=== PATIENT | female | born 1960 | race Caucasian/White ===

== ENCOUNTER 2022-04-03 08:00 | Outpatient (CLI) | payer MEDICARE ==
[2022-04-03 17:58] LABS: BILIRUBIN,URINE NEGATIVE (NEGATIVE); GLUCOSE, URINE (UA) NEGATIVE (NEGATIVE); KETONES,URINE (UA) NEGATIVE (NEGATIVE); LEUKOCYTE ESTERASE, URINE LARGE (NEGATIVE); NITRITE,URINE POSITIVE (NEGATIVE); OCCULT BLOOD,URINE NEGATIVE (NEGATIVE); PROTEIN,URINE NEGATIVE (NEGATIVE); UROBILINOGEN,URINE 1 (NORMAL) E.U./dL (NORMAL)
[2022-04-03 18:08] LABS: BACTERIA,URINE Moderate /HPF (None Seen); CLARITY,URINE CLEAR (CLEAR); RBC,URINE 0-5 /HPF (0-5); SQUAMOUS EPITHELIAL CELL,UR RARE Squamous (<= Few)
== END 2022-04-03 23:59 | disposition home or self-care (01) ==
LOC: LAB.N 08:00
PROVIDERS: ATTEND Physician Assistant Medical
DX: R30.0 Dysuria (principal)
CPT/HCPCS: 81001; 87086; 87181

== ENCOUNTER 2023-03-06 19:52 | Emergency (ER) | payer MEDICARE ==
[2023-03-06] MEDS ORDERED: VANCOMYCIN INJ 2.25 GM in SODIUM CHLORIDE 0.9% 500 ML IV STA (20:20)
[2023-03-06] MEDS ORDERED: cefTRIAXone 2 GM in SODIUM CHLORIDE 0.9% MINIBAG 100 ML IV STA (20:20)
[2023-03-06] MEDS ORDERED: ACYCLOVIR INJ 1,000 MG in SODIUM CHLORIDE 0.9% 250 ML IV STA (20:22)
[2023-03-06] MEDS ORDERED: AMPICILLIN 2 GM in SODIUM CHLORIDE 0.9% MINIBAG 100 ML IV STA (20:22)
--- NOTE | 2023-03-06 20:25 | ED Physician Documentation ---
PD HPI HEADACHE - Stated complaint Stated Complaint: MEDICATION REACTION - Chief complaint Chief Complaint: Neuro - History obtained from History obtained from: Patient, Family - Additional information Additional information: .62-year-old woman with history of hypertension had a trigger finger surgery 5 days ago, on Thursday. Starting that night she developed headache the headache is been progressive ever since with a fever up to 100.0 starting last night. Today she has had progressive confusion. The history is from the as she is very confused. PD PAST MEDICAL HISTORY - Allergies Allergies/Adverse Reactions: Allergies Allergy/AdvReac Type Severity Reaction Status Date / Time benazepril [From Lotensin] AdvReac Unknown Verified 03/06/23 20:11 PD ED PE NORMAL - Vitals Vital signs reviewed: Yes (Febrile, tachycardic, hypertensive) - General General: Other (She is oriented to person only. She follows simple commands. She states her age is 52. Has no idea of the date or situation.) - HEENT HEENT: PERRL, EOMI - Neck Neck: Other (Little bit hard to tell because of her encephalopathy but does seem to have some meningismus) - Cardiac Cardiac: Other (Mild resting tachycardia without murmur) - Respiratory Respiratory: No respiratory distress, Clear bilaterally - Abdomen Abdomen: Normal bowel sounds, Soft, Non tender - Derm Derm: Normal color, Warm and dry - Extremities Extremities: Other (2 small surgical incisions on the right palm that look fine without signs of infection.) - Neuro Neuro: No motor deficit, No sensory deficit Eye Opening: Spontaneous Motor: Obeys Commands Verbal: Confused GCS Score: 14 Results - Vitals Vitals: Vital Signs - 24 hr 03/06/23 03/06/23 03/06/23 20:05 20:30 21:00 Temperature 38.1 C H Heart Rate 108 H 110 H 93 Respiratory 16 31 H 31 H Rate Blood Pressure 178/83 H 194/97 H 184/90 H O2 Saturation 93 95 93 03/06/23 03/06/23 21:30 22:00 Temperature Heart Rate 100 95 Respiratory 31 H 32 H Rate Blood Pressure 182/80 H O2 Saturation 99 94 Oxygen O2 Source Room air - EKG (time done) 2043 EKG releavant findings:: EKG personally interpreted by author of this note. Relevant findings are: Rate: Rate (enter#) (90) Rhythm: NSR, LAE [place]: LAD Intervals: Normal AR QRS: Normal Ischemia: Non specific changes. No: ST elevation c/w ischemia, ST depression - Labs Labs: Laboratory Tests 03/06/23 03/06/23 03/06/23 20:24 20:24 21:02 WBC 18.5 H RBC 5.06 Hgb 14.3 Hct 42.6 MCV 84.2 MCH 28.3 MCHC 33.6 RDW 13.3 Plt Count MPV X RAY CONSULTANT Neut # (Auto) Not Reportable Lymph # (Auto) Not Reportable [place] # (Auto) Not Reportable Eos # (Auto) Not Reportable Baso # (Auto) Not Reportable Absolute Nucleated RBC Not Reportable Total Counted 100 Band Neuts % (Manual) 2 Abnorm Lymph % (Manual) 0 Nucleated RBC % Not Reportable Neutrophils # (Manual) 17.0 H Lymphocytes # (Manual) 0.2 L Monocytes # (Manual) 1.3 H Eosinophils # (Manual) 0.0 Basophils # (Manual) 0.0 Differential Comment MANUAL DIFFERENTIAL Platelet Estimate DECREASED (<130,000) Platelet Morphology PLATELET CLUMPING RBC Morph Micro Appear NORMAL APPEARANCE Sodium 136 Potassium 3.3 L Chloride 97 L Carbon Dioxide 28 Anion Gap 11.0 BUN 22 H Creatinine 0.7 Estimated GFR (MDRD) 85 L Glucose 178 H Lactic Acid 1.3 Calcium 9.5 Total Bilirubin 1.5 H AST 18 ALT 21 Alkaline Phosphatase 82 Total Protein 8.3 H Albumin 4.5 Globulin 3.8 Albumin/Globulin Ratio 1.2 Ethyl Alcohol < 5.0 - Rads (name of study) CT of the head demonstrates a mass in the right frontal lobe, could be metastatic disease versus brain abscess and there is associated hydrocephalus Relevant Findings:: Final report received, Discussed with rads, EMP independent interpretation of test Single view chest x-ray demonstrates cardiomegaly with left basilar opacity Relevant Findings:: Final report received, EMP independent interpretation of test PD Medical Decision Making - ED course ED course: 62-year-old woman presents with 4 days of progressive headache and today dev eloping encephalopathy. She is noted to be febrile and tachycardic. Initial concern was for meningitis. Initial orders included blood cultures, labs, IV Rocephin, vancomycin, ampicillin, and acyclovir. Subsequently she went over to CT where on my "wet read" she has a right frontal mass with hydrocephalus. This was discussed with the . She will need to go to a tertiary facility with capabilities for neurosurgery, neurology intervention, potentially infectious disease. I do not feel comfortable at this time doing a lumbar puncture as it may cause herniation. But she is being fully treated for meningitis. Upon review of her CTA also ordered dexamethasone. Spoke with Dr Araujo, hospitalist at [facility] at [phone], we need to talk with NSGY prior to [facility], but she accepts. Subsequently I spoke with Dr. Mayer who recommends to [facility] ([phone]), she is probably above their capabilities. Nneurosurgeon at [facility] Spoke with Dr. Navarro, she throat neurosurgery resident who accepts, recommends doing ED to ED transfer. Cardiology [facility] will call me back. This was at 10:25 PM Accepted to the SICU at [facility] by Dr. Ariadna Grissom 10:55 PM and cobras are completed. Patient has not progressed recently with her encephalopathy and is awake and responsive not needing an airway. They will call back when the bed is available. - Critical Care Time(min): 50 Time Includes: Direct patient care, Review records, Reassess patient, Document care, Coordinate care, Medical consult, Family consult for tx sep Data interpretation: Labs, Pulse ox Procedures included in critical care time: Peripheral IV Procedures excluded from critical care time: EKG Departure - Departure Disposition: 02 Transfer Acute Care Hosp Clinical Impression: Brain mass, Hydrocephalus, Encephalopathy acute Condition: Critical
[2023-03-06 20:32] LABS: BASOPHILS % (AUTO) 0.2 %; HCT - HEMATOCRIT 42.6 % (37.0-47.0); HGB - HEMOGLOBIN 14.3 g/dL (12.0-16.0); LYMPHOCYTES % (AUTO) 3.5 %; MEAN CORPUSCULAR HEMOGLOBIN 28.3 pg (27.0-31.0); MEAN CORPUSCULAR HGB CONC 33.6 g/dL (32.0-36.0); MEAN CORPUSCULAR VOLUME 84.2 fL (81.0-99.0); NEUTROPHILS % (AUTO) 85.6 %; RED BLOOD COUNT 5.06 10^6/uL (4.20-5.40); RED CELL DISTRIBUTION WIDTH 13.3 % (12.0-15.0); WHITE BLOOD COUNT 18.5 x10^3/uL (4.8-10.8)
[2023-03-06] MEDS ORDERED: AMPICILLIN 2 GM VIAL IV ONE (20:33)
[2023-03-06] MEDS ORDERED: cefTRIAXone 2 GM VIAL ONE (20:33)
[2023-03-06] MEDS ORDERED: VANCOMYCIN 1 GM VIAL ONE (20:34)
[2023-03-06 20:35] LABS: ABNORMAL LYMPHS % (MANUAL) 0 %
[2023-03-06] MEDS ORDERED: DEXAMETHASONE 10 MG/ML VIAL IVP STA (20:52)
--- NOTE | 2023-03-06 20:53 | XRAY Report ---
PROCEDURE: Chest 1 View X-Ray INDICATIONS: FEVER TECHNIQUE: One view of the chest was acquired. COMPARISON: None. FINDINGS: Surgical changes and devices: None. Lungs and pleura: Low lung volumes can be seen, causing a crowded appearance to the lung markings. P oorly defined opacity is seen at the left lung base. No pneumothorax is seen. Generalized interstitia l prominence can be seen. Mediastinum: Mediastinal contours appear normal. Heart size is moderately enlarged. Bones and chest wall: No suspicious bony lesions. Age-appropriate degenerative changes are seen. Overlying soft tissues appear unremarkable. IMPRESSION: Poorly defined opacity is seen at the left lung base. Differential diagnosis includes pleural effusio n and infiltrate. There is moderate cardiomegaly with generalized interstitial prominence. Please correlate with patien t examination, history, and laboratory values for underlying congestive heart failure. Reviewed by: Patrick Stockton MD on 03/06/2023 7:52 PM JUAN PABLO Approved by: Patrick Stockton MD on 03/06/2023 7:52 PM JUAN PABLO Station ID: [id number]
--- NOTE | 2023-03-06 21:05 | CT Report ---
PROCEDURE: HEAD WO INDICATIONS: HEADACHE FEVER TECHNIQUE: Noncontrast 4.5 mm thick angled axial sections acquired from the foramen magnum to the vertex. For r adiation dose reduction, the following was used: automated exposure control, adjustment of mA and/or kV according to patient size. COMPARISON: None. FINDINGS: Image quality: Excellent. CSF spaces: Basal cisterns are patent. No extra-axial fluid collections. Mild hydrocephalus is seen . Minimal relative narrowing can be seen of the right lateral ventricle. Brain: Abnormal low density can be seen throughout the right frontal lobe, which is attributed to va sogenic edema. There is an apparent mass seen, as on series 3 image 15 and on series 7 image 19 that measures up to 2.5 cm. Moderate associated mass effect can be seen, with 7 mm midline shift. No midline shift. No intracranial masses or hemorrhage. Leigh-white matter interface is normal. Skull and face: Calvarium and visualized facial bones are intact, without suspicious lesions. Sinuses: There is a mucous retention cyst seen within the right maxillary sinus. Visualized sinuses and mastoids are otherwise relatively clear. IMPRESSION: Abnormal right frontal lobe. 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 Differential delia gnosis includes a primary brain mass. Differential diagnosis would also include brain abscess in this patient with a given history of headache and fever and recent surgery. Associated hydrocephalus is seen. Please consider a dedicated brain MRI with IV contrast for further evaluation. Note: Findings and recommendations discussed by telephone with Dr. Pitts at 8:02 PM [place] time on . Reviewed by: Patrick Stockton MD on 03/06/2023 8:04 PM JUAN PABLO Approved by: Patrick Stockton MD on 03/06/2023 8:04 PM JUAN PABLO Station ID: [id number]
[2023-03-06 21:07] LABS: BAND NEUTROPHILS % (MANUAL) 2 %; LYMPHOCYTES # (MANUAL) 0.2 10^3/uL (1.5-3.5); LYMPHOCYTES % (MANUAL) 1 %; MONOCYTES # (MANUAL) 1.3 10^3/uL (0.0-1.0)
[2023-03-06 21:08] LABS: RBC MORPHOLOGY (MULTIPLE) NORMAL APPEARANCE (NORMAL)
[2023-03-06 21:19] LABS: DIFFERENTIAL COMMENT MANUAL DIFFERENTIAL; PLATELET ESTIMATE, MANUAL DECREASED (<130,000) (NORMAL); PLATELET MORPHOLOGY PLATELET CLUMPING (NORMAL)
[2023-03-06 21:20] LABS: ALBUMIN 4.5 g/dL (3.2-5.5); ALBUMIN/GLOBULIN RATIO 1.2 (1.0-2.2); ALKALINE PHOSPHATASE 82 IU/L (42-121); ALT ALANINE AMINOTRANSFERASE 21 IU/L (10-60); AST ASPARTATE AMINOTRANSFERASE 18 IU/L (10-42); BILIRUBIN,TOTAL 1.5 mg/dL (0.2-1.0); BUN - BLOOD UREA NITROGEN 22 mg/dL (6-20); CALCIUM 9.5 mg/dL (8.5-10.3); CARBON DIOXIDE - CO2 28 mmol/L (21-32); CHLORIDE 97 mmol/L (101-111); CREATININE 0.7 mg/dL (0.4-1.0); ETOH - ETHANOL < 5.0 mg/dL; GFR - MDRD 85 (>89); GLUCOSE 178 mg/dL (70-100); POTASSIUM 3.3 mmol/L (3.5-5.0); SODIUM 136 mmol/L (135-145); TOTAL PROTEIN 8.3 g/dL (6.7-8.2)
[2023-03-06] MEDS ORDERED: ACETAMINOPHEN 500 MG TABLET PO STA (23:01)
[2023-03-07 00:47] VITALS: BP 153/80
[2023-03-07 00:54] LABS: B. PARAPERTUSSIS- RESP PCR PAN NOT DETECTED; B. PERTUSSIS- RESP PCR PANEL NOT DETECTED; C. PNEUMONIAE- RESP PCR PANEL NOT DETECTED; CORONAVIRUS 229E-RESP PCR NOT DETECTED; CORONAVIRUS HKU1-RESP PCR NOT DETECTED; CORONAVIRUS NL63-RESP PCR NOT DETECTED; CORONAVIRUS OC43-RESP PCR NOT DETECTED; HUMAN METAPNEUMOVIRUS NOT DETECTED; INFLUENZA A- RESP PCR PANEL NOT DETECTED; INFLUENZA B - RESP PCR PANEL NOT DETECTED; M. PNEUMONIAE- RESP PCR PANEL NOT DETECTED; PARAINFLUENZA VIRUS 1 NOT DETECTED; PARAINFLUENZA VIRUS 2 NOT DETECTED; PARAINFLUENZA VIRUS 3 NOT DETECTED; PARAINFLUENZA VIRUS 4 NOT DETECTED; RHINOVIRUS/ENTEROVIRUS NOT DETECTED; RSV- RESP PCR PANEL NOT DETECTED; SARS-CoV-2 -RESP PCR PANEL NOT DETECTED
== END 2023-03-07 01:19 | disposition short-term general hospital (02) ==
LOC: ED 19:52
DX: G93.40 Encephalopathy, unspecified (principal); G91.9 Hydrocephalus, unspecified; G93.89 Other specified disorders of brain
CPT/HCPCS: 36415; 70450; 71045; 80053; 83605; 85025; 87040; 87150; 87633; 93005; 96365; 96366; 96368; 96375; 99285; 99291; A9270; G0480; J0133; J3370; 80320

== ENCOUNTER 2023-09-19 19:15 | Outpatient (CLI) | payer MEDICARE | END 2023-09-19 19:16 | disposition critical access hospital (66) | LOC: EMS 19:15 | DX: R56.9 Unspecified convulsions (principal) | CPT/HCPCS: A0425; A0429 ==

== ENCOUNTER 2023-09-19 19:29 | Emergency (ER) | payer MEDICARE ==
--- NOTE | 2023-09-19 19:34 | ED Physician Documentation ---
PD HPI SEIZURE - Stated complaint Stated Complaint: SZ - History obtained from History obtained from: Patient, EMS - Additional information Additional information: I sent her to [facility] in February of this year for brain abscess. She did need craniotomy and drainage. Reportedly did not have any seizures perioperatively. Today she had a 3 to 5-minute tonic-clonic seizure with 15-minute postictal period. She is feeling okay now but does seem very mildly confused. She has been on amoxicillin for about a week for a sinus infection. Per the she had a 100% recovery from her prior brain infection and surgery. PD PAST MEDICAL HISTORY - Present Medications Home Medications: Ambulatory Orders Medication Instructions Recorded Confirmed Amoxicillin 1 cap PO TID 09/19/23 09/19/23 Apixaban [Eliquis] 1 tab PO BID 09/19/23 09/19/23 Cholecalciferol (Vitamin D3) 1 cap PO DAILY 09/19/23 09/19/23 [Vitamin D3] Felodipine [Felodipine ER] 1 tab PO DAILY 09/19/23 09/19/23 Levetiracetam [Keppra] 750 mg PO BID #120 tablet 09/19/23 Losartan Potassium 1 tab PO DAILY 09/19/23 09/19/23 Sertraline [Zoloft] 1 tab PO DAILY 09/19/23 09/19/23 - Allergies Allergies/Adverse Reactions: Allergies Allergy/AdvReac Type Severity Reaction Status Date / Time acai Allergy Unknown Verified 09/19/23 19:42 nitrofurantoin Allergy Unknown Verified 09/19/23 19:42 [From Macrobid] benazepril [From Lotensin] AdvReac Unknown Verified 03/06/23 20:11 PD ED PE NORMAL - Vitals Vital signs reviewed: Yes - General General: Alert and oriented X 3, Other (ANO x 3 but poor recollection of short- term events) - HEENT HEENT: PERRL, EOMI - Neck Neck: Supple, no meningeal sign, No bony TTP - Cardiac Cardiac: RRR, No murmur - Respiratory Respiratory: No respiratory distress, Clear bilaterally - Abdomen Abdomen: Non tender, Non distended - Neuro Neuro: Alert and oriented X 3, tank tester 2-12 intact, No motor deficit, No sensory deficit, Normal speech Eye Opening: Spontaneous Motor: Obeys Commands Verbal: Confused (v mild) GCS Score: 14 - Psych Psych: Normal mood, Normal affect Results - Vitals Vitals: Vital Signs - 24 hr 09/19/23 09/19/23 19:37 21:41 Temperature 35.9 C L Heart Rate 92 96 Respiratory 20 18 Rate Blood Pressure 159/81 H 141/69 H O2 Saturation 96 99 Oxygen O2 Source Room air - Labs Labs: Laboratory Tests 09/19/23 09/19/23 20:10 20:10 WBC 6.9 RBC 4.92 Hgb 12.9 Hct 41.7 MCV 84.8 MCH 26.2 L MCHC 30.9 L RDW 15.0 Plt Count 73 L MPV 12.1 H Neut # (Auto) 4.9 Lymph # (Auto) 1.2 L [place] # (Auto) 0.6 Eos # (Auto) 0.1 Baso # (Auto) 0.1 Absolute Nucleated RBC 0.00 Nucleated RBC % 0.0 Sodium 136 Potassium 4.0 Chloride 103 Carbon Dioxide 24 Anion Gap 9.0 BUN 20 Creatinine 0.6 Estimated GFR (MDRD) 101 Glucose 126 H Calcium 9.8 Magnesium 1.9 Total Bilirubin 0.3 AST 18 ALT 15 Alkaline Phosphatase 117 Total Protein 7.5 Albumin 4.6 Globulin 2.9 Albumin/Globulin Ratio 1.6 - Rads (name of study) CT head with and without contrast showing encephalomalacia in the area of prior abscess without acute findings. Relevant Findings:: Final report received, EMP independent interpretation of test PD Medical Decision Making - ED course ED course: 52yo female with hx brain abscess (03/03) with crani and drainage had sz tonight. Initially mild confusion, resolved during ED stay. Labs (CBC/WMP) nl CT head showing expected encephalomalacia related prior infection. No current infection Spokme with Dr Sanchez, [facility] , agrees with keppra load and dc onkeppra with f//u Departure - Departure Disposition: 01 Home, Self Care Clinical Impression: Seizure Condition: Good Record reviewed to determine appropriate education?: Yes Instructions: First Aid Seizures Prescriptions: Levetiracetam [Keppra] 750 mg PO BID #120 tablet Comments: She was seen tonight for new onset seizure. Because of that you should not drive for 6 months or until cleared by neurology. They did recommend we start you on Keppra/levetiracetam which is a commonly used antiepileptic drug. You received a higher IV dose tonight to get things started and then a little lower dose pending follow-up. It may make you slightly sleepy. Follow-up with Dr. Watson, calling the office for an appointment early next month. Forms: PCP List Discharge Date/Time: 09/19/23 22:18
[2023-09-19 20:28] LABS: BASOPHILS # (AUTO) 0.1 10^3/uL (0.0-0.1); BASOPHILS % (AUTO) 0.7 %; EOSINOPHILS # (AUTO) 0.1 10^3/uL (0.0-0.7); EOSINOPHILS % (AUTO) 1.6 %; HCT - HEMATOCRIT 41.7 % (37.0-47.0); HGB - HEMOGLOBIN 12.9 g/dL (12.0-16.0); LYMPHOCYTES # (AUTO) 1.2 10^3/uL (1.5-3.5); LYMPHOCYTES % (AUTO) 17.1 %; MEAN CORPUSCULAR HEMOGLOBIN 26.2 pg (27.0-31.0); MEAN CORPUSCULAR HGB CONC 30.9 g/dL (32.0-36.0); MEAN CORPUSCULAR VOLUME 84.8 fL (81.0-99.0); MEAN PLATELET VOLUME 12.1 fL (7.9-10.8); MONOCYTES # (AUTO) 0.6 10^3/uL (0.0-1.0); MONOCYTES % (AUTO) 8.5 %; NEUTROPHILS # (AUTO) 4.9 10^3/uL (1.5-6.6); NEUTROPHILS % (AUTO) 71.4 %; PLT - PLATELET COUNT 73 10^3/uL (130-450); RED BLOOD COUNT 4.92 10^6/uL (4.20-5.40); WHITE BLOOD COUNT 6.9 x10^3/uL (4.8-10.8)
[2023-09-19 20:36] LABS: ALBUMIN 4.6 g/dL (3.2-5.5); ALBUMIN/GLOBULIN RATIO 1.6 (1.0-2.2); BILIRUBIN,TOTAL 0.3 mg/dL (0.2-1.0); CALCIUM 9.8 mg/dL (8.5-10.3); CREATININE 0.6 mg/dL (0.6-1.3); MAGNESIUM 1.9 mg/dL (1.7-2.3); TOTAL PROTEIN 7.5 g/dL (6.4-8.9)
--- NOTE | 2023-09-19 20:55 | CT Report ---
PROCEDURE: HEAD W/WO INDICATIONS: New seizure, history of brain abscess TECHNIQUE: 4.5 mm thick angled axial sections acquired from the foramen magnum to the vertex before and after th e administration of intravenous contrast. For radiation dose reduction, the following was used: aut omated exposure control, adjustment of mA and/or kV according to patient size. CONTRAST: 100 ml omni 300 COMPARISON: FINDINGS: Image quality: Excellent. CSF Spaces: Basal cisterns are patent. No extra-axial fluid collections. Ventricles are asymmetric in size and shape with mild interval asymmetric enlargement of the right frontal horns of the latera l ventricles in this patient with prior edema and abscess formation in that area seen on CT scanning 03/06/2023. The mass effect has diminished, encephalomalacia is present to a mild degree. No new lesio n is found elsewhere Brain: No midline shift. No intracranial bleeds or masses. No abnormal intracranial enhancement. Leigh-white interface appears normal. Skull and face: Calvarium and visualized facial bones appear intact, without suspicious lesions. Sinuses: Visualized sinuses and mastoids are clear except for persistent mucous retention cyst withi n the right maxillary sinus. IMPRESSION: Encephalomalacia in an area of prior edema and apparent abscess formation seen in February of this year, r ight fundal region. Craniotomy has been performed over that area, presumably for evacuation. No new a bnormality found, significant reduction in mass effect identified. Reviewed by: Oj Patrick MD on 09/19/2023 8:54 PM PST Approved by: Oj Patrick MD on 09/19/2023 8:54 PM PST Station ID: [id number]
[2023-09-19] MEDS ORDERED: ACETAMINOPHEN 500 MG TABLET PO STA (21:03)
[2023-09-19] MEDS ORDERED: iohexoL-300 100 ML VIAL IVP ONE (21:08)
[2023-09-19] MEDS ORDERED: levETIRAcetam INJ 2,000 MG in SODIUM CHLORIDE 0.9% 100ML 100 ML IV STA (21:35)
[2023-09-19 22:21] VITALS: BP 141/69; O2SAT 99
== END 2023-09-19 22:18 | disposition home or self-care (01) ==
LOC: EDUNIT# → ED 19:29
DX: R56.9 Unspecified convulsions (principal); Z86.69 Personal history of other diseases of the nervous system and sense organs
CPT/HCPCS: 36415; 70470; 80053; 83735; 85025; 93005; 96365; 99283; 99284; A9270; Q9967